=== PATIENT | male | born 1975 | race Hispanic/Latino ===

== ENCOUNTER 2018-10-27 08:59 | Emergency (ER) | payer BC, OTHER ==
[2018-10-27] MEDS ORDERED: Adacel (T-DAP) 0.5 ML SYRINGE ONE (09:16)
[2018-10-27] MEDS ORDERED: Ondansetron PF 4 MG/2 ML Vial ONE (09:39)
[2018-10-27] MEDS ORDERED: Morphine 2 MG/ML SYRINGE ONE (09:39)
[2018-10-27] MEDS ORDERED: Morphine 4 MG/ML VIAL ONE (09:39)
--- NOTE | 2018-10-27 13:01 | CT ---
ORBIT CT WITHOUT CONTRAST: HISTORY: Right eye injury this morning while using a slab grinder. The patient was not wearing eye protection. COMPARISON: None. FINDINGS: The visualized brain parenchyma is unremarkable. There is mild mucosal thickening of the paranasal sinuses. There is significant opacification of the left maxillary sinus. Visualized mastoid air cells are adequately aerated. There are no fractures with regard to the osseous margins of the orbits or sinuses. Intact pterygoid plates and zygomatic arches. Visualized maxilla and mandible as well as the nasal bones are intact. There is a linear hyperdensity in the soft tissues anterior and slightly lateral to the right maxilla ry sinus, measuring 0.6 cm. A small metallic foreign body is suspected. There is mild stranding of the right periorbital soft tissues. The right globe has an abnormal appearance and configuration wit h heterogeneous attenuation suggesting components of hemorrhage. The right globe is decompressed and a normal-appearing ocular lens is not appreciated. There is no significant fat stranding of the ret robulbar intraconal or extraconal fat. LEFT ORBIT: Intact globe. Appropriate position of the ocular lens. Appropriate attenuation of the optic nerves and ocular rectus muscles. IMPRESSION: Rupture of the right globe. Normal-appearing ocular lens and globe is not appreciated on the right s marcial. Results of the study were discussed with Dr. Frost 10/27/2018 at 9:41 a.m. ASHLEY SUAREZ POS: [facility]
== END 2018-10-27 10:58 | disposition short-term general hospital (02) ==
LOC: ERS 08:59
DX: S05.31XA Ocular laceration without prolapse or loss of intraocular tissue, right eye, initial encounter (principal); S01.82XA Laceration with foreign body of other part of head, initial encounter; S61.210A Laceration without foreign body of right index finger without damage to nail, initial encounter; I10 Essential (primary) hypertension; W26.8XXA Contact with other sharp object(s), not elsewhere classified, initial encounter
CPT/HCPCS: 70480; 90471; 90715; 96365; 96375; J2270; J2405

== ENCOUNTER 2020-08-02 11:29 | Emergency (ER) | payer BC, SELFPAY ==
[2020-08-02] MEDS ORDERED: Lidocaine 1% w/Epinephrine 1:100K 20 ML VIAL ONE ×2 (12:37→12:38)
[2020-08-02] MEDS ORDERED: Bacitracin 1 PK ONE (12:38)
== END 2020-08-02 13:53 | disposition home or self-care (01) ==
LOC: ERS 11:29
DX: S01.511A Laceration without foreign body of lip, initial encounter (principal); I10 Essential (primary) hypertension; W22.8XXA Striking against or struck by other objects, initial encounter
CPT/HCPCS: 12011